=== PATIENT | male | born 1985 | race Caucasian/White ===

== ENCOUNTER → 2016-12-13 | Outpatient (CLI) | payer OTHER ==
[~2016-12-13] MED LIST: AMOXICILLIN500 M2 PO; AMOXICILLIN500 MG PO; CEFADROXIL500 M1 PO; CLARITIN10 MG PO; FLEXERIL10 MG PO; LOMOTIL 0.025 M1 TAB PO; MEDROL DOSEPAK4 MG PO; MOTRIN800 MG PO; Motrin,Rufen800 MG PO; NAPROSYN500 MG PO; NKHM; PEPCID20 MG PO; ZYRTEC10 MG PO; Zofran4 MG PO
[2016-12-13 17:52] LABS: URINE AMPHETAMINES < 1000 (1000ng/ml); URINE BARBITURATES < 200 (200ng/ml); URINE BENZODIAZEPINES < 200 (200ng/ml); URINE CANNABINOIDS (THC) < 50 (50ng/ml); URINE COCAINE < 300 (300ng/ml); URINE METHADONE < 300 (300ng/ml); URINE OPIATES < 300 (300ng/ml); URINE PHENCYCLIDINE < 25 (25ng/ml)
[2016-12-14 05:07] LABS: HEPATITIS B SURFACE AB 006395 Non Reactive (.); HEPATITIS B SURFACE AG Negative (Negative)
[2016-12-14 18:05] LABS: HEPATITIS C QUANTITATION 7770000 IU/mL (.)
== END | disposition home or self-care (01) ==
LOC: LAB 17:12
PROVIDERS: Internal Medicine Gastroenterology
DX: R76.8 Other specified abnormal immunological findings in serum (principal)

== ENCOUNTER 2017-11-16 04:25 | Emergency (ER) | payer OTHER ==
[~2017-11-16] VITALS: Ht 180.3 cm; Wt 97.5 kg
[2017-11-16] MEDS ORDERED: Orphenadrine C100 MG PO (06:51)
[2017-11-16] MEDS ORDERED: Motrin,Rufen800 MG PO (06:51)
== END 2017-11-16 07:31 | disposition home or self-care (01) ==
LOC: ED 04:25
DX: S42.102A Fracture of unspecified part of scapula, left shoulder, initial encounter for closed fracture (principal); R07.9 Chest pain, unspecified; M54.2 Cervicalgia; M60.88 Other myositis, other site; W20.8XXA Other cause of strike by thrown, projected or falling object, initial encounter; Y93.89 Activity, other specified; Y92.89 Other specified places as the place of occurrence of the external cause; Y99.8 Other external cause status

== ENCOUNTER → 2018-03-28 | Outpatient (CLI) | payer OTHER ==
[~2018-03-28] MED LIST changes: +Orphenadrine C100 MG PO
== END | disposition home or self-care (01) ==
LOC: US 06:18
DX: R10.11 Right upper quadrant pain (principal); R74.8 Abnormal levels of other serum enzymes

== ENCOUNTER 2018-07-18 08:52 | Emergency (ER) | payer OTHER ==
[~2018-07-18] VITALS: Ht 180.3 cm; Wt 98.9 kg
[2018-07-18] MEDS ORDERED: Motrin,Rufen800 MG PO (09:53)
[2018-09-20] MEDS ORDERED: LISINOPRIL20 MG PO (08:25)
[2018-09-20] MEDS ORDERED: FLUOXETINE HCL40 MG PO (08:26)
[2018-09-20] MEDS ORDERED: MAVYRET 100-401 EACH PO (08:26)
[2018-09-23] MEDS ORDERED: METHOCARBAMOL750 M1 PO (09:09)
[2018-09-23] MEDS ORDERED: ZOFRAN 4 MG ED2 TAB PO (09:09)
[2018-09-23] MEDS ORDERED: ATARAX,VISTARIL50 MG PO (09:09)
== END 2018-07-18 10:35 | disposition home or self-care (01) ==
LOC: ED 08:52
DX: S93.401A Sprain of unspecified ligament of right ankle, initial encounter (principal); X58.XXXA Exposure to other specified factors, initial encounter; Y93.89 Activity, other specified; Y92.89 Other specified places as the place of occurrence of the external cause; Y99.8 Other external cause status

== ENCOUNTER 2023-06-20 02:00 | Emergency (ER) | payer SELFPAY ==
[~2023-06-20] VITALS: Ht 177.8 cm; Wt 90.7 kg
[~2023-06-20 02:00] MED LIST changes: +ATARAX,VISTARIL50 MG PO; +FLUOXETINE HCL40 MG PO; +LISINOPRIL20 MG PO; +MAVYRET 100-401 EACH PO; +METHOCARBAMOL750 M1 PO; +ZOFRAN 4 MG ED2 TAB PO
[2023-06-20] MEDS ORDERED: Acetaminophen/Hydrocodone 5 MG/325 MG TABLET PO ONE (02:30)
[2023-06-20] MEDS ORDERED: CLINDAMYCIN HCL 300 MG CAPSULE PO ONE (02:30)
[2023-06-20] MEDS ORDERED: Ondansetron Hydrochloride 4 MG TAB SL ONE (02:30)
[2023-06-20] MEDS ORDERED: CLINDAMYCIN HC300 MG PO (02:34)
== END 2023-06-20 03:18 | disposition home or self-care (01) ==
LOC: ED 02:00
DX: K02.9 Dental caries, unspecified (principal); F14.90 Cocaine use, unspecified, uncomplicated; F10.20 Alcohol dependence, uncomplicated; F15.10 Other stimulant abuse, uncomplicated